=== PATIENT | male | born 1950 | race Caucasian/White ===

== ENCOUNTER 2023-11-19 09:38 | Day surgery (SDC) | payer MEDICARE, OTHER ==
[2023-11-18 10:34] VITALS: BMI 28.0
[2023-11-19] MEDS ORDERED: Bupivacaine PF 0.5% 30 ML VIAL ONE (11:02)
[2023-11-19] MEDS ORDERED: CEFAZOLIN 2 GM VIAL ONE (11:45)
[2023-11-19] MEDS ORDERED: PROPOFOL 20 ML ONE ×2 (11:54→12:02)
[2023-11-19] MEDS ORDERED: fentaNYL 50 mcg/mL 1 mL Vial ONE ×2 (11:54)
[2023-11-19] MEDS ORDERED: ePHEDrine Sulfate 50 MG/10 ML VIAL ONE (12:10)
[2023-11-19] MEDS ORDERED: PHENYLEPHRINE-NS 100 MCG/ML 10 ML SYRINGE ONE (12:11)
== END 2023-11-19 14:00 | disposition home or self-care (01) ==
LOC: CSHSDC 09:38
PROVIDERS: ATTEND Podiatrist Foot & Ankle Surgery
PROC: 0QBP0Z2 Excision of Left Metatarsal, Sesamoid Bone(s) 1st Toe, Open Approach (ICD-10-PCS; principal; 2023-11-19)
DX: L97.529 Non-pressure chronic ulcer of other part of left foot with unspecified severity (principal); I73.9 Peripheral vascular disease, unspecified; E78.5 Hyperlipidemia, unspecified; G89.29 Other chronic pain; K21.9 Gastro-esophageal reflux disease without esophagitis; I48.20 Chronic atrial fibrillation, unspecified; I10 Essential (primary) hypertension; N40.0 Benign prostatic hyperplasia without lower urinary tract symptoms; Z79.899 Other long term (current) drug therapy; Z79.51 Long term (current) use of inhaled steroids; Z86.73 Personal history of transient ischemic attack (TIA), and cerebral infarction without residual deficits; Z95.5 Presence of coronary angioplasty implant and graft
CPT/HCPCS: 28315; 73620; 93005; J3010; 93010; J0665; J2704

== ENCOUNTER 2024-04-19 09:12 | Day surgery (SDC) | payer MEDICARE, OTHER ==
[2024-04-18 09:14] VITALS: BMI 27.7
[2024-04-19] MEDS ORDERED: CEFAZOLIN 2 GM VIAL ONE (10:24)
[2024-04-19] MEDS ORDERED: Bupivacaine PF 0.5% 30 ML VIAL ONE (10:24)
[2024-04-19 11:13] LABS: #Basophils 0.05 10x3/uL (0.0-0.2); #Eosinphils 0.15 10x3/uL (0.0-0.5); #Monocytes 0.41 10x3/uL (0.0-1.1); #Neutrophils 3.65 10x3/uL (1.5-8.4); %Basophils 0.9 % (0.0-2.0); %Eosinophils 2.7 % (0.0-6.0); %Lymphocytes 23.9 % (18.0-47.0); %Monocytes 7.3 % (0.0-10.0); Hematocrit 38.4 % (38.8-50.0); Hemoglobin 12.7 g/dL (13.5-17.5); Mean Corpuscular HGB CONC 33.1 g/dL (32.0-36.0); Mean Corpuscular Hemoglobin 32.6 pg (27.0-33.0); Mean Corpuscular Volume 98.7 fL (81.2-95.1); Mean Platelet Volume 8.6 fL (7.4-10.4); Platelet Count 251 10x3/uL (150-450); RBC Distribution Width 13.5 % (11.5-14.5); Red Blood Cell (RBC) Count 3.89 10x6/uL (4.32-5.72); White Blood Cell (WBC) Count 5.6 10x3/uL (3.5-10.5)
[2024-04-19] MEDS ORDERED: PROPOFOL 20 ML ONE (11:13)
[2024-04-19] MEDS ORDERED: fentaNYL 50 mcg/mL 1 mL Vial ONE ×2 (11:13→11:14)
[2024-04-19 11:22] LABS: Anion Gap 12 mmol/L (10-20); BUN (Urea Nitrogen) 25 mg/dL (8.4-25.7); Calc. Creatinine Clearance 100 mL/min (70-130); Calcium 9.1 mg/dL (7.8-10.44); Carbon Dioxide 25 mmol/L (23-31); Chloride 105 mmol/L (98-107); Estimated GFR 83; Glucose 97 mg/dL (83-110); Potassium 4.3 mmol/L (3.5-5.1); Sodium 138 mmol/L (136-145)
[2024-04-19] MEDS ORDERED: PHENYLEPHRINE-NS 100 MCG/ML 10 ML SYRINGE ONE (11:42)
[2024-04-19] MEDS ORDERED: Ondansetron PF 4 MG/2 ML Vial ONE (11:52)
[2024-04-19] MEDS ORDERED: Dexamethasone 20 MG/5 ML VIAL ONE (11:52)
== END 2024-04-19 13:16 | disposition home or self-care (01) ==
LOC: CSHSDC 09:12
PROVIDERS: ATTEND Podiatrist Foot & Ankle Surgery
PROC: 0Y6P0Z0 Detachment at Right 1st Toe, Complete, Open Approach (ICD-10-PCS; principal; 2024-04-19)
DX: M86.8X8 Other osteomyelitis, other site (principal); Z88.1 Allergy status to other antibiotic agents
CPT/HCPCS: 28825; 73620; 80048; 85025; 87070; 87075; 87205; 93005; J0665; J1100; J2405; J2704; J3010; 93010

== ENCOUNTER 2024-06-02 08:56 | Day surgery (SDC) | payer MEDICARE, OTHER ==
[2024-06-01 10:24] VITALS: BMI 26.7
[2024-06-02] MEDS ORDERED: Lidocaine 2% PF 5 ML VIAL ONE (09:26)
[2024-06-02] MEDS ORDERED: PROPOFOL 20 ML ONE (09:27)
[2024-06-02] MEDS ORDERED: Bupivacaine PF 0.5% 30 ML VIAL ONE (10:34)
[2024-06-02] MEDS ORDERED: CEFAZOLIN 2 GM VIAL ONE (10:34)
[2024-06-02] MEDS ORDERED: fentaNYL 50 mcg/mL 1 mL Vial ONE (11:24)
[2024-06-02] MEDS ORDERED: Ondansetron PF 4 MG/2 ML Vial ONE (11:25)
[2024-06-02] MEDS ORDERED: PHENYLEPHRINE-NS 100 MCG/ML 10 ML SYRINGE ONE (11:47)
== END 2024-06-02 13:40 | disposition home or self-care (01) ==
LOC: CSHSDC 08:56 → EDSTATUS 14:55
PROVIDERS: ATTEND Podiatrist Foot & Ankle Surgery
PROC: 0Y6V0Z1 Detachment at Right 4th Toe, High, Open Approach (ICD-10-PCS; principal; 2024-06-02)
DX: M20.41 Other hammer toe(s) (acquired), right foot (principal); L97.512 Non-pressure chronic ulcer of other part of right foot with fat layer exposed; I10 Essential (primary) hypertension; E78.5 Hyperlipidemia, unspecified; I25.10 Atherosclerotic heart disease of native coronary artery without angina pectoris; I48.91 Unspecified atrial fibrillation; I73.9 Peripheral vascular disease, unspecified; Z95.0 Presence of cardiac pacemaker; Z79.899 Other long term (current) drug therapy
CPT/HCPCS: 28825; 73620; J0665; J2001; J2405; J2704; J3010

== ENCOUNTER 2025-05-25 09:45 | Day surgery (SDC) | payer MEDICARE, OTHER ==
[2025-05-24 09:56] VITALS: BMI 28.0
[2025-05-25] MEDS ORDERED: PROPOFOL 0 ML ONE (10:41)
[2025-05-25] MEDS ORDERED: Lidocaine 1% PF 5 ML VIAL ONE (10:42)
[2025-05-25] MEDS ORDERED: CEFAZOLIN 2 GM VIAL ONE (10:45)
[2025-05-25] MEDS ORDERED: PHENYLEPHRINE-NS 100 MCG/ML 10 ML SYRINGE ONE (11:04)
[2025-05-25] MEDS ORDERED: PROPOFOL 20 ML ONE (11:37)
== END 2025-05-25 13:25 | disposition home or self-care (01) ==
LOC: CSHSDC 09:45
PROVIDERS: ATTEND Podiatrist Foot & Ankle Surgery
PROC: 0Y6N0Z9 Detachment at Left Foot, Partial 1st Ray, Open Approach (ICD-10-PCS; principal; 2025-05-25)
DX: T84.9XXA Unspecified complication of internal orthopedic prosthetic device, implant and graft, initial encounter (principal); M86.8X7 Other osteomyelitis, ankle and foot; E66.9 Obesity, unspecified; Z68.28 Body mass index [BMI] 28.0-28.9, adult; Z88.1 Allergy status to other antibiotic agents; Y83.1 Surgical operation with implant of artificial internal device as the cause of abnormal reaction of the patient, or of later complication, without mention of misadventure at the time of the procedure
CPT/HCPCS: 28820; 73620; 93005; J0665; J1100; J2704; J3010; 93010

== ENCOUNTER 2025-06-20 06:46 | Day surgery (SDC) | payer MEDICARE, OTHER ==
[2025-06-19 12:45] VITALS: BMI 28.0
[2025-06-20 08:02] LABS: #Basophils 0.05 10x3/uL (0.0-0.2); #Eosinophils 0.15 10x3/uL (0.0-0.5); #Monocytes 0.62 10x3/uL (0.0-1.1); #Neutrophils 4.32 10x3/uL (1.5-8.4); %Basophils 0.7 % (0.0-2.0); %Eosinophils 2.2 % (0.0-6.0); %Lymphocytes 22.8 % (18.0-47.0); %Monocytes 9.3 % (0.0-10.0); %Neutrophils 64.9 % (40.0-75.0); Hematocrit 42.4 % (38.8-50.0); Hemoglobin 13.4 g/dL (13.5-17.5); Mean Corpuscular Hemoglobin 27.7 pg (27.0-33.0); Mean Corpuscular Volume 87.6 fL (81.2-95.1); Platelet Count 188 10x3/uL (150-450); Red Blood Cell (RBC) Count 4.84 10x6/uL (4.32-5.72); White Blood Cell (WBC) Count 6.67 10x3/uL (3.5-10.5)
[2025-06-20 08:15] LABS: Anion Gap 15 mmol/L (10-20); BUN (Urea Nitrogen) 27 mg/dL (8.4-25.7); Calc. Creatinine Clearance 89 mL/min (70-130); Calcium 8.8 mg/dL (7.8-10.44); Carbon Dioxide 20 mmol/L (23-31); Chloride 109 mmol/L (98-107); Glucose 101 mg/dL (83-110); Potassium 4.3 mmol/L (3.5-5.1); Sodium 140 mmol/L (136-145)
[2025-06-20] MEDS ORDERED: Lidocaine 1% PF 5 ML VIAL ONE (08:52)
[2025-06-20] MEDS ORDERED: PROPOFOL 20 ML ONE (08:52)
[2025-06-20] MEDS ORDERED: CEFAZOLIN 2 GM VIAL ONE (09:06)
== END 2025-06-20 10:45 | disposition home or self-care (01) ==
LOC: CSHSDC 06:46
PROVIDERS: ATTEND Podiatrist Foot & Ankle Surgery
PROC: 0Y6R0Z3 Detachment at Right 2nd Toe, Low, Open Approach (ICD-10-PCS; principal; 2025-06-20)
PROC: 0Y6T0Z3 Detachment at Right 3rd Toe, Low, Open Approach (ICD-10-PCS; 2025-06-20)
PROC: 0LNV0ZZ Release Right Foot Tendon, Open Approach (ICD-10-PCS; 2025-06-20)
DX: M86.8X7 Other osteomyelitis, ankle and foot (principal); M20.41 Other hammer toe(s) (acquired), right foot; Z86.73 Personal history of transient ischemic attack (TIA), and cerebral infarction without residual deficits; Z88.1 Allergy status to other antibiotic agents
CPT/HCPCS: 28232; 28825 ×2; 73620; 80048; 85025; 93005; J0665; J2704; 36415; 93010